=== PATIENT | male | born 1990 | race Caucasian/White ===

== ENCOUNTER 2023-12-15 15:49 | Emergency (ER) | payer OTHER ==
[~2023-12-15 15:49] MED LIST: LIDEX0.05% T; PREDNICOT20 MG PO
[2023-12-15] MEDS ORDERED: AMOX-CLAV 875-1 EACH PO (16:09)
[2023-12-15] MEDS ORDERED: TRAMADOL HCL50 MG PO (16:09)
== END 2023-12-15 16:16 | disposition home or self-care (01) ==
LOC: ED 15:49
DX: K02.9 Dental caries, unspecified (principal); K04.7 Periapical abscess without sinus; F17.290 Nicotine dependence, other tobacco product, uncomplicated

== ENCOUNTER → 2024-01-08 | Outpatient (CLI) | payer OTHER ==
[~2024-01-08] MED LIST changes: +AMOX-CLAV 875-1 EACH PO; +TRAMADOL HCL50 MG PO
== END | disposition home or self-care (01) ==
LOC: RAD 13:30
PROVIDERS: ATTEND Internal Medicine
DX: M41.84 Other forms of scoliosis, thoracic region (principal)